=== PATIENT | female | born 1995 | race Caucasian/White ===

== ENCOUNTER 2020-05-06 18:45 | Outpatient (CLI) | payer MEDICAID ==
[~2020-05-06] VITALS: Ht 162.6 cm; Wt 73.2 kg
--- NOTE | 2020-05-06 18:45 | NUR ---
PT TO UNIT WITH COMPLAINTS OF LOWER ABDOMINAL AND BACK CRAMPING. PT IS A G4L0 AT 29.0 WEEKS. TO UNIT AMBULATORY WITH FOB, ORIENTED TO ROOM, CHANGED INTO GOWN, VS OBTAINED, EFMX2 APPLIED.
[2020-05-06 19:27] VITALS: BP 99/56; PULSE 74; TEMP 98.4
[2020-05-06] MEDS ORDERED: PRENATAL PO (19:36)
[2020-05-06] MEDS ORDERED: TYLENOL 500MG500 MG PO (19:36)
[2020-05-06] MEDS ORDERED: LOVENOX 4040 MG/0.4 SQ (19:37)
[2020-05-06 19:55] LABS: TRICYCLIC ANTIDEPRESS URINE NEGATIVE
[2020-05-06 20:00] VITALS: BP 99/56; PULSE 74; TEMP 98.4
[2020-05-06 20:06] LABS: COLLECTION METHOD CLEAN CATCH
[2020-05-06 20:29] LABS: MUCOUS Present /lpf; PH 6 (5-8); URINE APPEARANCE Hazy; URINE BACTERIA Moderate /hpf; URINE BILIRUBIN Negative (NEGATIVE); URINE BLOOD Negative (NEGATIVE); URINE COLOR Yellow; URINE GLUCOSE Negative (NEGATIVE); URINE KETONE Negative (NEGATIVE); URINE LEUKOCYTE ESTERASE Negative (NEGATIVE); URINE NITRATE Negative (NEGATIVE); URINE PROTEIN(semi-quant) Negative (NEGATIVE); URINE RBC 0-2 /hpf; URINE UROBILINOGEN Negative (NEGATIVE)
== END 2020-05-06 20:45 | disposition home or self-care (01) ==
LOC: LDRO 18:45 → LDR 18:45 → LDRO 18:59
PROVIDERS: Obstetrics & Gynecology
DX: O26.893 Other specified pregnancy related conditions, third trimester (principal); R25.2 Cramp and spasm; Z3A.29 29 weeks gestation of pregnancy; Z87.891 Personal history of nicotine dependence
CPT/HCPCS: OP